=== PATIENT | male | born 1995 | race Caucasian/White ===

== ENCOUNTER → 2024-04-24 | Day surgery (SDC) | payer BC ==
[~2024-04-24] MED LIST: FENTANYL CITRATE/PF 100MCG/2 ML INJ ONE; HYOSCYAMINE SULFATE 0.5 MG/ML INJ ONE; LIDOCAINE HCL 2% LOCAL INJ 5 ML SDV VIAL INJ ONE; MIDAZOLAM HCL 2 MG/2 ML VIAL ONE; MULTI-VITAMIN1 EACH PO; PANTOPRAZOLE SO40 MG PO; PROPOFOL IV EMULSION 10 MG/ML 20 ML VIAL ONE
[2024-04-24] MEDS: LACTATED RINGER'S 1,000 ML ONE ×2 (13:00→13:44)
[2024-04-24 14:46] VITALS: TEMP 97.7
[2024-04-24 15:10] VITALS: BP 103/73; PULSE 85; RESP 17; O2SAT 100
== END | disposition home or self-care (01) ==
LOC: OR 11:12
PROVIDERS: ATTEND Internal Medicine Gastroenterology
DX: K21.9 Gastro-esophageal reflux disease without esophagitis (principal); D12.3 Benign neoplasm of transverse colon; K29.70 Gastritis, unspecified, without bleeding; K31.89 Other diseases of stomach and duodenum; K28.9 Gastrojejunal ulcer, unspecified as acute or chronic, without hemorrhage or perforation; K44.9 Diaphragmatic hernia without obstruction or gangrene; K92.0 Hematemesis; K59.00 Constipation, unspecified; K64.8 Other hemorrhoids; R09.82 Postnasal drip; Z80.0 Family history of malignant neoplasm of digestive organs
CPT/HCPCS: 43239; 45384; J1980; J2003; J2250; J2704; J3010; J7121; 45378